=== PATIENT | female | born 2000 | race Caucasian/White ===

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

== ENCOUNTER 2021-03-30 20:44 | Emergency (ER) | payer OTHER ==
[2021-03-30 21:02] VITALS: BP 117/78; PULSE 101; BMI 34.7
[2021-03-30] MEDS ORDERED: IBUPROFEN 400 MG TABLET (FP) PO ONE ×2 (22:07→22:16)
== END 2021-03-30 22:34 | disposition home or self-care (01) ==
LOC: JERFT 20:44
DX: H60.502 Unspecified acute noninfective otitis externa, left ear (principal)
CPT/HCPCS: 99283-25

== ENCOUNTER 2025-03-31 06:52 | Inpatient (IN) | payer OTHER ==
[2025-03-31 09:35] LABS: ABSOLUTE IMMATURE GRANULOCYTES 0.12 x10^3/uL (0.0-0.031); BASOPHILS # 0.05 x10^3/uL (0.01-0.08); EOSINOPHIL % 0.5 % (0.7-5.8); EOSINOPHILS # 0.08 x10^3/uL (0.04-0.36); MCHC 32.9 g/dl (32.2-35.5); MEAN CELL VOLUME 85.1 fl (79.4-94.8); MEAN PLT VOLUME 10.1 fl (9.4-12.3); MONOCYTE # 0.76 x10^3/uL (0.24-0.86); MONOCYTE % 5.2 % (4.7-12.5); RDW 13.8 % (12.1-16.5)
[2025-03-31 09:42] LABS: INR 1.1 (0.83-1.09); PROTHROMBIN TIME (PATIENT) 12.0 SEC (9.7-13.0)
[2025-03-31 09:45] LABS: ACTIVATED PTT 32.3 SECONDS (25.2-36.5)
[2025-03-31] MEDS: LACTATED RINGERS SOLUTION 1,000 ML/1,000 ML INFUS.BAG IV SCH (09:45)
[2025-03-31 09:52] LABS: GLUCOSE,RANDOM 103.0 mg/dL (74-106)
[2025-03-31 09:53] LABS: CO2 23.0 mmol/L (21-32)
[2025-03-31 09:58] LABS: CREATININE 0.6 mg/dL (0.55-1.3)
[2025-03-31 11:06] VITALS: BMI 41.1
[2025-03-31] MEDS ORDERED: PROMETHAZINE HCL 25 MG/1 ML VIAL ONE (13:12)
[2025-03-31] MEDS ORDERED: BUTORPHANOL TARTRATE 2 MG/ML VIAL ONE (13:12)
[2025-03-31] MEDS: PROMETHAZINE HCL 25 MG/1 ML VIAL IVPB ONE (13:20)
[2025-03-31] MEDS: BUTORPHANOL TARTRATE 1 MG/ML VIAL IVPUSH ONE (13:22)
[2025-03-31] MEDS ORDERED: LIDOCAINE HCL 1% PRESERVATIVE FREE - 30ML VIAL ONE (16:23)
[2025-03-31] MEDS ORDERED: OXYTOCIN 20 UNITS in 0.9% NS 20 UNIT/1,000 ML INFUS.BAG IV ONE ×2 (16:23→19:12)
[2025-03-31] MEDS ORDERED: BENZOCAINE 28 GM HEMORRHOIDAL OINTMENT TP PRN (16:57)
[2025-03-31] MEDS ORDERED: IBUPROFEN 600 MG TABLET (FP) PO PRN (16:57)
[2025-03-31] MEDS ORDERED: ACETAMINOPHEN 325 MG TABLET (FP) PO PRN (16:57)
[2025-03-31] MEDS ORDERED: BISACODYL 10 MG SUPP.RECT RC PRN (16:57)
[2025-03-31] MEDS ORDERED: BENZOCAINE 20% 57 GM BOTTLE TP PRN (16:57)
[2025-03-31] MEDS ORDERED: WITCH HAZEL 50% (TUCKS) 40 PAD/JAR PAD TP PRN (16:57)
[2025-03-31] MEDS ORDERED: METHYLERGONOVINE MALEATE 0.2 MG/1 ML AMP IM PRN (16:57)
[2025-03-31] MEDS: OXYTOCIN 20 UNITS in 0.9% NS 20 UNIT/1,000 ML INFUS.BAG IV SCH (17:00)
[2025-03-31 17:28] LABS: CORD BASE EXCESS -2.8 mmol/L (0-2); CORD HCO3 23.8 mmHg (20-29); CORD PCO2 47.4 mmHg (30-78); CORD pH 7.319 (7.14-7.44)
[2025-03-31 17:28] LABS: CORD BASE EXCESS -4.5 mmol/L (0-2); CORD HCO3 25.4 mmHg (20-29); CORD PCO2 66.9 mmHg (30-78); CORD pH 7.198 (7.14-7.44)
[2025-04-01 06:58] LABS: ABSOLUTE IMMATURE GRANULOCYTES 0.09 x10^3/uL (0.0-0.031); BASOPHILS # 0.07 x10^3/uL (0.01-0.08); EOSINOPHIL % 0.5 % (0.7-5.8); EOSINOPHILS # 0.08 x10^3/uL (0.04-0.36); MCHC 32.8 g/dl (32.2-35.5); MEAN CELL VOLUME 85.6 fl (79.4-94.8); MEAN PLT VOLUME 10.1 fl (9.4-12.3); MONOCYTE # 1.07 x10^3/uL (0.24-0.86); MONOCYTE % 6.2 % (4.7-12.5); RDW 13.8 % (12.1-16.5)
[2025-04-01] MEDS: PRENATAL VITAMINS W/ FOLIC ACID TABLET (FP) PO SCH (09:36)
[2025-04-01 15:35] VITALS: TEMP 98.2
[2025-04-01] MEDS ORDERED: SENNOSIDES/DOCUSATE COMBO (SENNA PLUS) TABLET (UD) PO PRN (22:00)
[2025-04-02 08:25] VITALS: BP 123/73; PULSE 79; RESP 17
== END 2025-04-02 12:35 | disposition home or self-care (01) | DRG 560 ==
LOC: JDEL 06:52 → JLDR 08:55 → J3W 20:06
PROVIDERS: ADMIT Obstetrics & Gynecology; ATTEND Obstetrics & Gynecology
PROC: 10E0XZZ Delivery of Products of Conception, External Approach (ICD-10-PCS; principal; 2025-03-31)
PROC: 0HQ9XZZ Repair Perineum Skin, External Approach (ICD-10-PCS; 2025-03-31)
DX: O70.0 First degree perineal laceration during delivery (principal); Z3A.38 38 weeks gestation of pregnancy; Z37.0 Single live birth
CPT/HCPCS: 36415; 36600; 59025; 59409; 80048; 82803; 85025; 85610; 85730; 86780; 86850; 86900; 86901